=== PATIENT | female | born 1960 | race Caucasian/White ===

== ENCOUNTER → 2024-01-01 08:43 | Outpatient (REF) | payer OTHER, SELFPAY | LOC: HWRAD 08:43 | PROVIDERS: ATTENDING PHYSICIAN Internal Medicine | DX: Z78.0 Asymptomatic menopausal state (principal); Z12.31 Encounter for screening mammogram for malignant neoplasm of breast | CPT/HCPCS: 77063; 77067; 77080 ==

== ENCOUNTER 2024-03-02 16:03 | Emergency (ER) | payer OTHER, SELFPAY ==
[2024-03-02 16:09] VITALS: BP 157/98
[2024-03-02 17:30] LABS: % Basophils 0.5 % (0-2); % Eosinophils 0.9 % (0-6); % Immature Granulocytes 0.2 % (0-0.5); % Lymphocytes 37.4 % (20.5-51.1); % Monocytes 8.3 % (1.7-9.3); % Neutrophils 52.7 % (42.2-75.2); Absolute Basophils 0.1 10^3/uL (0-0.2); Absolute Eosinophils 0.1 10^3/uL (0-0.7); Absolute Lymphocytes 3.5 10^3/uL (1.2-3.4); Absolute Monocytes 0.8 10^3/uL (0.1-0.6); Hematocrit 39.1 % (37.0-47.0); Hemoglobin 13.6 g/dL (12.0-16.0); Mean Corp Hgb Conc. 34.8 g/dL (33.0-37.0); Mean Corpuscular Hgb 31.6 pg (27.0-31.0); Mean Corpuscular Volume 90.7 fL (81.0-99.0); Mean Platelet Volume 9.4 fL (7.4-10.4); Nucleated Red Blood Cells % 0 %; Platelet Count 292 10^3/uL (130-400); Red Blood Cell Count 4.31 10^6/uL (4.20-5.40); Red Cell Dist. Width 12.6 % (11.5-14.5); White Blood Cell Count 9.4 10^3/uL (4.8-10.8)
[2024-03-02 17:41] LABS: ALT (SGPT) 23 U/L (0-35); AST (SGOT) 29 U/L (14-36); Albumin 4.1 g/dl (3.5-5.0); Alkaline Phosphatase 101 U/L (38-126); Blood Urea Nitrogen 18 mg/dl (7-17); Calcium 9.4 mg/dl (8.4-10.2); Carbon Dioxide 24 mmol/L (22-30); Chloride 104 mmol/L (98-107); Glucose 131 mg/dl (70-99); Potassium 3.9 mmol/L (3.5-5.1); Sodium 141 mmol/L (135-145); Total Bilirubin 0.2 mg/dl (0.2-1.3); eGFR > 60.00
[2024-03-02 17:48] VITALS: BP 146/80
[2024-03-02 17:53] LABS: Troponin I < 0.012 ng/ml
[2024-03-02 18:33] LABS: COVID-19 Antigen Negative (Negative)
--- NOTE | 2024-03-02 19:32 | EDRN ---
called pharmacy for christopher
[2024-03-02] MEDS: ANTIVERT 25 MG PO (19:42)
[2024-03-02] MEDS: BIAXIN 500 MG PO (19:42)
[2024-03-02 19:49] VITALS: BP 167/80
--- NOTE | 2024-03-02 20:09 | ED.GENMED ---
History of Present Illness
General
Chief Complaint: Dizziness
Source: patient
Exam Limitations: none
Time Seen by Provider: 03/02/24 17:15
Nursing documentation reviewed up to this point in time: agreed with
History of Present Illness
History of Present Illness:
Patient to eD with complaint of dizziness, headache, ear fullness. States symptoms started on . Describes 'exterme'vertigo. States any movement caused dizziness and vomiting. Sunday she felt improved. Sunday she developed frontal head
pain which continues to wworsen.. She was seen at and sent to ED for further evaluation. No fever/chills, recent illness. Ambulating to room without difficulty
Past History
Past History
ED Past Medical History: HTN, Hypercholesterolemia and Other (noncontributory)
ED Past Surgical History: Other (noncontributory)
Social History
Tobacco: Non-smoker
Alcohol: Occasional
Review of Systems
Review of Systems
All Other Systems: ROS reviewed and negative except as documented in HPI and ROS
Constitutional: Reports no symptoms
EENT: Reports other (ear fullness)
Respiratory: Reports no symptoms
Cardiac: Reports no symptoms
ABD/GI: Reports vomiting (Sunday)
: Reports no symptoms
Musculoskeletal: Reports no symptoms
Skin: Reports no symptoms
Neurological: Reports dizzy and headache
Psychiatric: Reports no symptoms
Phy Exam
General Physical Exam
General Presentation: well appearing
General age: appears stated age
General Skin: warm and dry
General Habitus: normal
General Mental: alert
ENT Exam
ENT Exam: TM's normal, pharynx normal, neck supple and swallowing well
Cardiovascular Exam
Cardiovascular Exam: regular rate/rhythm and no edema
Pulmonary Exam
Pulmonary Exam: lungs clear and no respiratory distress
Neurological Exam
Neurological Exam: alert, oriented x3, CN II-XII intact, no motor deficits, no sensory deficits, speech normal and normal gait
Musculoskeletal Exam
Musculoskeletal Exam: full ROM and neuro vasc intact
Skin Exam
Skin Exam: normal color, warm/dry and no rash
Psychiatric Exam
Psychiatric Exam: normal mood/affect
Course
Orders/Labs/Results
Orders:
Orders
03/02/24 16:16
Electrocardiogram (*1) Urgent
Reason for Study: Vertigo / Dizzy
EKG- Treatment ONCE
03/02/24 17:20
CT Head W/o Iv Contrast Urgent
Comment:
Reason For Exam: dizziness
03/02/24 17:21
Complete Blood Count/With Diff Urgent
Comprehensive Metabolic Panel Urgent
Troponin I Urgent
03/02/24 18:[address]
Sinuses [address] Contrast [address] [CT Sinuses W/o Iv Contrast] Urgent
Comment:
Reason For Exam: pain/pressure
03/02/24 18:08
COVID-19 Antigen Urgent
Source: Nasal Swab
03/02/24 19:17
Meclizine [Antivert] 25 mg PO NOW STA
03/02/24 19:19
Clarithromycin [Biaxin] 500 mg PO NOW STA
03/02/24 19:33
Clarithromycin [Biaxin] 500 mg PO NOW STA
Abnormal Lab Results
03/02/24
17:21
MCH 31.6 H pg
(27.0-31.0)
Absolute Lymphs (auto) 3.5 H 10^3/uL
(1.2-3.4)
Absolute Monos (auto) 0.8 H 10^3/uL
(0.1-0.6)
BUN 18 H mg/dl
(7-17)
Glucose 131 H mg/dl
(70-99)
03/02/24 17:21
03/02/24 17:21
Vital Signs
Initial and Last Documented VS:
Initial Vital Signs
Temp Pulse Resp BP Pulse Ox
98.2 F 84 16 157/98 98
03/02/24 16:09 03/02/24 16:09 03/02/24 16:09 03/02/24 16:09 03/02/24 16:09
Last Documented Vital Signs
Temp Pulse Resp BP Pulse Ox
98.2 F 70 14 167/80 97
03/02/24 16:09 03/02/24 19:49 03/02/24 19:49 03/02/24 19:49 03/02/24 19:49
*Radiology
Radiology exam reviewed: radiology read reviewed
*Pulse Oximetry
Patient hypoxic: no
*Critical Care Note
Total Time (30-74mins, 75-104mins- exclusive of procedures): Not Applicable
ED Attending Note
-
Portions of this chart may have been created with voice recognition software.� Occasional wrong word or��sound alike� substitutions may have occurred due to the inherent limitations of voice recognition software.
Discharge Plan
Departure
Patient Disposition: Home (Routine Discharge)
Date of Disposition: 03/02/24
Time of Disposition: 19:19
Patient with high blood pressure during this ER visit?: No
Condition: Good
Covid-19: Not Applicable
Discharge Problem:
Dizziness
Instructions: Sinusitis in adults
Prescriptions:
New
meclizine 25 mg tablet
25 mg PO TID PRN (Reason: dizziness) Qty: 20 0RF
clarithromycin 500 mg tablet
500 mg PO BID Qty: 14 0RF
No Action
hydrocodone-acetaminophen 1 TABLET tablet
1 tab PO Q4HPRN PRN (Reason: pain) Qty: 7 0RF
Referrals:
Marissa Almonte, [Family Provider] - Follow up in 2-3 days
Stand Alone Forms: Return to Work
Interventions
Interventions:
*Risk Screen - Suicide Last Done: 03/02/24 17:25
*General Assessment Last Done: 03/02/24 17:25
*Neglect/Abuse Screening Last Done: 03/02/24 17:25
ED- Fall Risk Assessment Last Done: 03/02/24 17:25
*Nursing Disposition Last Done: 03/02/24 19:53
ED- Neurological Assessment Last Done: 03/02/24 19:52
ED- Cardiac Assessment Last Done: 03/02/24 17:25
Discharge Date and Time
Discharge Date/Time: 03/02/24 19:53
Print Language: CHINESE
== END 2024-03-02 19:53 | disposition home or self-care (01) ==
LOC: EMR 16:03
PROVIDERS: Nurse Practitioner; EMERGENCY PHYSICIAN Emergency Medicine; FAMILY PHYSICIAN Internal Medicine
DX: R42 Dizziness and giddiness (principal)
CPT/HCPCS: 99285; 70450; 70486; 80053; 84484; 85025; 87811; 93005

== ENCOUNTER → 2024-04-18 08:32 | Outpatient (REF) | payer OTHER, SELFPAY | LOC: DHCBC/DCA 08:32 | PROVIDERS: ATTENDING PHYSICIAN Internal Medicine Cardiovascular Disease; FAMILY PHYSICIAN Internal Medicine | DX: I44.7 Left bundle-branch block, unspecified (principal) | CPT/HCPCS: 78452; 93017; A9500; J2785 ==

== ENCOUNTER → 2024-04-25 09:50 | Outpatient (REF) | payer OTHER, SELFPAY | LOC: HWRCS 09:50 | PROVIDERS: ATTENDING PHYSICIAN Internal Medicine Cardiovascular Disease; FAMILY PHYSICIAN Internal Medicine | DX: I44.7 Left bundle-branch block, unspecified (principal) | CPT/HCPCS: 93306 ==